=== PATIENT | female | born 1975 | race Caucasian/White ===

== ENCOUNTER 2019-05-14 11:15 | Day surgery (SDC) | payer OTHER ==
[2019-05-14] MEDS ORDERED: LACTATED RINGER'S 1,000 ML IV (12:30)
[2019-05-14] MEDS ORDERED: PROPOFOL 20 ML (13:14)
[2019-05-14] MEDS ORDERED: SUCCINYLCHOLINE CHLORIDE 100 MG/5 ML SYG IV (13:14)
[2019-05-14] MEDS ORDERED: LIDOCAINE 2% (SDV) 5 ML INJ (13:14)
[2019-05-14] MEDS ORDERED: ROCURONIUM 50 MG INJ (13:14)
[2019-05-14] MEDS ORDERED: NEOSTIGMINE 3 MG/3 ML SYRINGE (13:14)
[2019-05-14] MEDS ORDERED: GLYCOPYRROLATE 0.4 MG INJ (13:14)
[2019-05-14] MEDS ORDERED: MEPERIDINE 100 MG INJ (13:15)
[2019-05-14] MEDS ORDERED: METOCLOPRAMIDE 10 MG INJ (14:07)
[2019-05-14] MEDS ORDERED: ONDANSETRON 4 MG INJ (14:07)
[2019-05-14] MEDS: BUPIVACAINE 0.25% (MPF) 30 ML INJ (14:14)
[2019-05-14] MEDS ORDERED: MEPERIDINE 25 MG INJ IV (14:30)
[2019-05-14] MEDS ORDERED: OXYCODONE/ACETAMINOPHEN (5/325) TAB PO ×2 (14:30)
[2019-05-14] MEDS ORDERED: ONDANSETRON 4 MG INJ IV (14:30)
[2019-05-14] MEDS ORDERED: DIPHENHYDRAMINE 50 MG INJ IV (14:30)
[2019-05-14] MEDS ORDERED: METOCLOPRAMIDE 10 MG INJ IV (14:30)
[2019-05-14] MEDS ORDERED: FENTAnyl 50 MCG/ML VIAL IV ×3 (14:30)
[2019-05-14] MEDS ORDERED: MIDAZOLAM 1 MG/ML 2 ML INJ IV (14:30)
== END 2019-05-14 16:15 | disposition home or self-care (01) ==
LOC: SDS 11:15
DX: D10.1 Benign neoplasm of tongue (principal)
CPT/HCPCS: 41113; 84703; 88305